=== PATIENT | female | born 1970 | race African-American/Black ===

== ENCOUNTER → 2018-12-08 | Emergency (ER) | payer OTHER ==
[~2018-12-08] VITALS: Ht 157.5 cm; Wt 76.2 kg
[~2018-12-08] MED LIST: NORCO; SOMA; XANAX
== END | disposition left against medical advice (07) ==
LOC: ER 17:36
DX: Z53.21 Procedure and treatment not carried out due to patient leaving prior to being seen by health care provider (principal)
CPT/HCPCS: A4663